=== PATIENT | female | born 1940 | race Caucasian/White ===

== ENCOUNTER → 2024-01-22 10:15 | Outpatient (REF) | payer MEDICARE, BC, SELFPAY | LOC: RAD 10:15 | PROVIDERS: ATTENDING PHYSICIAN Orthopaedic Surgery; FAMILY PHYSICIAN Family Medicine Adult Medicine | DX: M25.512 Pain in left shoulder (principal) | CPT/HCPCS: 78315; A9503 ==

== ENCOUNTER 2025-01-10 12:09 | Emergency (ER) | payer MEDICARE, BC, SELFPAY ==
[2025-01-10 12:11] VITALS: BP 152/88
--- NOTE | 2025-01-10 13:56 | ED.GENMED ---
History of Present Illness
General
Chief Complaint: Back Pain
Source: patient
Exam Limitations: none
Time Seen by Provider: 01/10/25 13:11
Nursing documentation reviewed up to this point in time: agreed with
History of Present Illness
History of Present Illness:
see MDM
Past History
Past History
ED Past Medical History: HTN and Hypercholesterolemia
Social History
Tobacco: Non-smoker
Alcohol: None
Drug: None
Personal: Single
Review of Systems
Review of Systems
Allergies reviewed?: Yes
All Other Systems: Not applicable
Phy Exam
Physical Exam
Physical Exam:
GENERAL: Alert , in no apparent distress, comfortable at rest
HEAD: NCAT
NECK: no midline tenderness, active ROM intact, no paraspinal muscle tenderness;
CARDIAC: Regular rate and rhythm, no edema
LUNGS: Clear breath sounds bilaterally, no acute respiratory distress, no wheezes/rales/rhonchi
ABDOMEN: Soft, without focal tenderness, no r/g, no cvat, normal bowel sounds, nondistended
NEUROLOGICAL: Alert and oriented, no focal neuro deficits, CN intact, 5/5 strength, sensation intact, able to ambulate on own
SKIN: Warm and dry, no rash
MUSCULOSKELETAL: hips normal
Back: No midline tenderness, moderate kyphosis of the thoracic spine; moderate L paraspinal muscle tenderness to lateral thoracic lower spine; no rash
negative straight leg raise Bilaterally
PSYCH: Normal and appropriate interaction.
Course
Orders/Labs/Results
Orders:
Orders
01/10/25 13:55
Hydrocodone 5/APAP 325 [[place] 5/325] 1 tablet PO NOW STA
Lumbar Spine Complete, 4 View [CR Lumbar Spine Comp Min 4 Vw*] Urgent
Comment:
Reason For Exam: fall back pain
Thoracic Spine 4 Views CR [CR Thoracic Spine Min 4 Views] Urgent
Comment:
Reason For Exam: fall back pain
01/10/25 14:45
Electrocardiogram (*1) Urgent
Reason for Study: Other
Other Reason for Exam: back pain
EKG- Treatment ONCE
01/10/25 15:13
Urinalysis Reflex To Culture Urgent
Date Specimen was Collected: 01/10/25
Time Specimen was Collected: 14:56
Vital Signs
Initial and Last Documented VS:
Initial Vital Signs
Temp Pulse Resp BP Pulse Ox
36.7 C 71 16 152/88 98
01/10/25 12:11 01/10/25 12:11 01/10/25 12:11 01/10/25 12:11 01/10/25 12:11
Last Documented Vital Signs
Temp Pulse Resp BP Pulse Ox
36.7 C 71 16 152/88 98
01/10/25 12:11 01/10/25 12:11 01/10/25 12:11 01/10/25 12:11 01/10/25 13:56
MDM/Problems Addressed
Differential Diagnosis Includes:
seem MDM
MDM/Problems Addressed:
Note:
CHIEF COMPLAINT(S)
Severe lower back pain.
HISTORY OF PRESENT ILLNESS
The patient is an adult female who presented with complaints of severe lower back pain. The onset of her pain began two weeks ago after a fall. The patient describes the fall as occurring when she was getting into a car improperly, leading to a
backward fall on the driveway. Emergency Luggage Attendant were called to assist her, but at the time, she did not experience significant pain. The situation worsened this past 4 days ago after lifting a laundry hamper. The patient reported severe
pain onset following this incident, which has persisted since then.
The pain is localized to the lower back, particularly exacerbated by changing positions, and walking. However, the patient noted some relief with the use of a heating pad. She denies any associated symptoms such as shortness of breath, hematuria,
abdominal pain, numbness, or tingling down the legs.
pt called her PCP and started meloxicam and baclofen
they have not helped
oxycodone isn't tolerated well.
The patient acknowledged a history of hypertension and hyperlipidemia, controlled with lisinopril 40 mg daily and rosuvastatin 5 mg daily, respectively. She did not take her hypertension medication prior to this visit.
SOCIAL DETERMINANTS AFFECTING HEALTH
The patient mentioned reliance on friends to call Emergency Luggage Attendant when she fell, indicating a potential social support system in place for emergencies.
PHYSICAL EXAM
see exam
PROBLEM LIST
Acute Problems:
- Severe lower back pain following a fall and subsequent lifting injury.
Chronic Problems:
- Hypertension
- Hyperlipidemia
PLAN
1. Imaging: Obtain X-rays of the thoracic and lumbar spine to assess for potential compression fractures.
2. Pain Management: Consideration of changing the pain medication regimen to Vicodin due to past tolerance.
3. Monitoring: Educate patient on not combining oxycodone with acetaminophen.
4. Cardiac Screening: Despite low suspicion for cardiac involvement, an Electrocardiogram can be considered to alleviate family concerns, although not deemed necessary based on current findings.
DIFFERENTIAL DIAGNOSIS
The Differential Diagnosis includes, in no particular order and is not limited to:
1. Musculoskeletal strain or sprain
2. Compression fracture
3. Degenerative disc disease
4. Lumbar spinal stenosis
5. Herniated disc
6. Osteoporosis with subsequent fractures
7. Sacroiliitis
8. Spondylolisthesis
9. Renal colic (excluded due to lack of hematuria)
10. Abdominal aortic aneurysm (excluded due to lack of abdominal symptoms)
*Pulse Oximetry
SaO2: 98
Oxygen Mode of Delivery: Room air
ED Attending Note
-
Portions of this chart may have been created with voice recognition software.� Occasional wrong word or��sound alike� substitutions may have occurred due to the inherent limitations of voice recognition software.
Discharge Plan
Departure
Referrals:
Kehinde Boswell DO [Family Provider, Family Practice]
Interventions
Interventions:
*Risk Screen - Suicide Last Done: 01/10/25 12:11
*Neglect/Abuse Screening Last Done: 01/10/25 12:11
ED-Musculoskeletal Assessment Last Done: 01/10/25 12:58
Discharge Date and Time
Print Language: CYMRO
[2025-01-10] MEDS: NORCO 5/325 1 TABLET PO (14:02)
[2025-01-10 15:33] LABS: Urine Character Slightly Cloudy (Clear)
[2025-01-10 15:47] LABS: Urine Red Blood Cell 0-2 /HPF (0-2); Urine Squamous Cell 0-2 /LPF (Few)
[2025-01-10] MEDS: OMNICEF 300 MG PO (16:35)
[2025-01-10 16:49] LABS: Hematocrit 35.6 % (37.0-47.0); Hemoglobin 12.2 g/dL (12.0-16.0); Mean Corp Hgb Conc. 34.3 g/dL (33.0-37.0); Mean Corpuscular Volume 86.0 fL (81.0-99.0); Nucleated Red Blood Cells % 0 %; Platelet Count 239 10^3/uL (130-400); Red Cell Dist. Width 13.2 % (11.5-14.5)
[2025-01-10 17:10] LABS: ALT (SGPT) 14 U/L (0-35); AST (SGOT) 24 U/L (14-36); Albumin 3.8 g/dl (3.5-5.0); Alkaline Phosphatase 66 U/L (38-126); Blood Urea Nitrogen 27 mg/dl (7-17); Calcium 9.1 mg/dl (8.4-10.2); Carbon Dioxide 29 mmol/L (22-30); Chloride 99 mmol/L (98-107); Glucose 153 mg/dl (70-99); Potassium 3.9 mmol/L (3.5-5.1); Sodium 134 mmol/L (135-145); Total Protein 6.2 g/dl (6.3-8.2); eGFR > 60.00
== END 2025-01-10 17:48 | disposition home or self-care (01) ==
LOC: EMR 12:09
PROVIDERS: Physician Assistant; EMERGENCY PHYSICIAN Emergency Medicine; FAMILY PHYSICIAN Family Medicine Adult Medicine
DX: M54.50 Low back pain, unspecified (principal); W19.XXXA Unspecified fall, initial encounter; V48.4XXA Person boarding or alighting a car injured in noncollision transport accident, initial encounter; E78.00 Pure hypercholesterolemia, unspecified; I11.0 Hypertensive heart disease with heart failure; I50.9 Heart failure, unspecified; Z96.643 Presence of artificial hip joint, bilateral; Z96.653 Presence of artificial knee joint, bilateral; Z96.612 Presence of left artificial shoulder joint; Z96.611 Presence of right artificial shoulder joint; Z79.899 Other long term (current) drug therapy
CPT/HCPCS: 99283; 72074; 72110; 80053; 81003; 81015; 85025; 87071; 87086; 87186; 93005